=== PATIENT | female | born 1970 | race Caucasian/White ===

== ENCOUNTER 2025-01-22 17:57 | Inpatient (IN) | payer BC, SELFPAY ==
[2025-01-22 14:43] VITALS: BP 132/84
[2025-01-22 16:13] LABS: Hematocrit 37.5 % (37.0-47.0); Hemoglobin 12.8 g/dL (12.0-16.0); Mean Corp Hgb Conc. 34.1 g/dL (33.0-37.0); Mean Corpuscular Volume 89.9 fL (81.0-99.0); Nucleated Red Blood Cells % 0 %; Platelet Count 242 10^3/uL (130-400); Red Cell Dist. Width 13.8 % (11.5-14.5)
--- NOTE | 2025-01-22 16:25 | ED.GENMED ---
History of Present Illness
<Valeria Galindo PA-C - Last Filed: 01/22/25 21:53>
General
Chief Complaint: Skin Problem
Source: patient
Exam Limitations: none
Time Seen by Provider: 01/22/25 16:09
History of Present Illness
History of Present Illness:
54yo right hand dominant female with no significant past medical history presenting for evaluation of left wrist redness. Patient was bitten by her daughters cat 3 days ago. She was seen by her PCP the following day and was started on Keflex. The
redness and swelling has progressively worsened since then and the redness started to streak up the forearm today. She was again seen by her PCP today in follow-up and she was told to go to the ED for IV antibiotics. Patient received seen today.
Cat is up-to-date on rabies vaccinations. No fevers or chills.
Phy Exam
<Valeria Galindo PA-C - Last Filed: 01/22/25 21:53>
General Physical Exam
General Presentation: well appearing and no apparent distress
General Skin: warm and dry
General Habitus: normal
General Mental: alert
ENT Exam
ENT Exam: normocephalic
Pulmonary Exam
Pulmonary Exam: no respiratory distress
Neurological Exam
Neurological Exam: alert
Ericka Coma Scale
Eye Opening: Spontaneous
Verbal Response: Oriented
Motor Response: Obeys Commands
GCS Total Score: 15
Skin Exam
Skin Exam: warm/dry and other (Erythema/warmth noted to dorsum of hand/wrist with redness extending to the proximal forearm. Small puncture wound noted to wrist. ROM of wrist decreased 2/2 swelling. No pain with micro-motion. No fluctuance or
crepitus. 2+ radial pulse.)
Psychiatric Exam
Psychiatric Exam: normal mood/affect
Course
<Valeria Galindo PA-C - Last Filed: 01/22/25 21:53>
Orders/Labs/Results
Orders:
Orders
01/22/25 Dinner
Regular
At Your Request: Full Participation
01/22/25 16:01
Complete Blood Count/With Diff Urgent
Comprehensive Metabolic Panel Urgent
Lactic Acid Urgent
01/22/25 16:24
0.9% Sodium Chloride 1000 ml [Nss] 1,000 ml IV BOLUS
CefTRIAXone [Rocephin] 1,000 mg IV NOW STA
MetroNIDAZOLE 500 MG/100 ML [Flagyl 500 mg] 100 ml IV NOW
01/22/25 16:34
Blood Culture Q30M
PAOLA Source: Blood/Venous
Specimen Description:
Blood Culture Q30M
PAOLA Source: Blood/Venous
Specimen Description:
01/22/25 17:03
Admit/Transfer Patient As Directed
Co-Sign Provider:
Level of Care: Inpatient admission
Assign to:: Medical/Surgical
Physician / Group: hospitalist
Diagnosis: cellulitis
Reason for Hospitalization: cellulitis
Expected length of stay greater than two midnights?: Yes
ELOS- Estimated Length of Stay in days: 3
I certify the patient meets the requirements for IP care: Yes
PRN Pain Medication Management As Directed
May give lesser potent ordered pain med per pt: Yes
preference::
Protocol:: Medication orders for pain may be administered in a
manner that supports deferring to patient preference
when the pt is:
- Requesting an ordered lesser potent pain medication.
Least to most potent pain medications are defined
as: acetaminophen < NSAID < tramadol < opioids
(morphine, oxycodone, hydromorphone).
- Requesting a lesser dose of the same medication IF
ORDERED.
- Requesting a less intrusive route of administration
if both routes are prescribed by the provider (PO <
IV).
01/22/25 17:04
Code Status As Directed
Resuscitation Status: Full Code
01/22/25 18:05
Acetaminophen [Tylenol] 650 mg PO Q6HPRN PRN
Bisacodyl [Dulcolax] 10 mg RECTAL [id number] PRN
Docusate W/Senna [Senokot-S] 1 tablet PO BIDPRN PRN
Enoxaparin Sodium [Lovenox] 40 mg SC QPM
Polyethylene Glycol Powder [Miralax] 17 grams PO DAILYPRN PRN
01/22/25 18:05
Activity As Directed
Activity Level: Out of Bed-Early Mobility
Vital Signs As Directed
Frequency: Per unit guidelines
DX Deep Vein Thrombosis Video Routine
01/22/25 18:19
HYDROmorphone [Dilaudid] 0.25 mg IV Q4HPRN PRN
01/23/25 00:00
MetroNIDAZOLE 500 MG/100 ML [Flagyl 500 mg] 100 ml IV Q8H
01/23/25 06:00
Basic Metabolic Panel IN AM
Complete Blood Count/With Diff IN AM
Levothyroxine [Synthroid] 62.5 mcg PO DAILY@0600
01/23/25 08:00
Multivitamin [Theragran] 1 tablet PO DAILY
01/23/25 16:00
CefTRIAXone [Rocephin] 2,000 mg IV Q24H
Abnormal Lab Results
01/22/25
16:01
RBC 4.17 L 10^6/uL
(4.20-5.40)
Absolute Lymphs (auto) 1.0 L 10^3/uL
(1.2-3.4)
Absolute Monos (auto) 0.7 H 10^3/uL
(0.1-0.6)
Lymphocytes % 13.9 L %
(20.5-51.1)
Monocytes % 10.2 H %
(1.7-9.3)
01/22/25 16:01
01/22/25 16:01
Vital Signs
Initial and Last Documented VS:
Initial Vital Signs
Temp Pulse Resp BP Pulse Ox
98.7 F 75 20 132/84 99
01/22/25 14:43 01/22/25 14:43 01/22/25 14:43 01/22/25 14:43 01/22/25 14:43
Last Documented Vital Signs
Temp Pulse Resp BP Pulse Ox
98.2 F 76 18 132/82 98
01/22/25 18:14 01/22/25 18:14 01/22/25 18:14 01/22/25 18:14 01/22/25 18:14
<Timoteo Cullen, DO - Last Filed: 01/22/25 17:00>
Orders/Labs/Results
Orders:
Orders
01/22/25 Dinner
Regular
At Your Request: Full Participation
01/22/25 16:01
Complete Blood Count/With Diff Urgent
Comprehensive Metabolic Panel Urgent
Lactic Acid Urgent
01/22/25 16:24
0.9% Sodium Chloride 1000 ml [Nss] 1,000 ml IV BOLUS
CefTRIAXone [Rocephin] 1,000 mg IV NOW STA
MetroNIDAZOLE 500 MG/100 ML [Flagyl 500 mg] 100 ml IV NOW
01/22/25 16:34
Blood Culture Q30M
PAOL[facility] Source: Blood/Venous
Specimen Description:
Blood Culture Q30M
PAOL[facility] Source: Blood/Venous
Specimen Description:
01/22/25 17:03
Admit/Transfer Patient As Directed
Co-Sign Provider:
Level of Care: Inpatient admission
Assign to:: Medical/Surgical
Physician / Group: hospitalist
Diagnosis: cellulitis
Reason for Hospitalization: cellulitis
Expected length of stay greater than two midnights?: Yes
ELOS- Estimated Length of Stay in days: 3
I certify the patient meets the requirements for IP care: Yes
PRN Pain Medication Management As Directed
May give lesser potent ordered pain med per pt: Yes
preference::
Protocol:: Medication orders for pain may be administered in a
manner that supports deferring to patient preference
when the pt is:
- Requesting an ordered lesser potent pain medication.
Least to most potent pain medications are defined
as: acetaminophen < NSAID < tramadol < opioids
(morphine, oxycodone, hydromorphone).
- Requesting a lesser dose of the same medication IF
ORDERED.
- Requesting a less intrusive route of administration
if both routes are prescribed by the provider (PO <
IV).
01/22/25 17:04
Code Status As Directed
Resuscitation Status: Full Code
01/22/25 18:05
Acetaminophen [Tylenol] 650 mg PO Q6HPRN PRN
Bisacodyl [Dulcolax] 10 mg RECTAL [id number] PRN
Docusate W/Senna [Senokot-S] 1 tablet PO BIDPRN PRN
Enoxaparin Sodium [Lovenox] 40 mg SC QPM
Polyethylene Glycol Powder [Miralax] 17 grams PO DAILYPRN PRN
01/22/25 18:05
Activity As Directed
Activity Level: Out of Bed-Early Mobility
Vital Signs As Directed
Frequency: Per unit guidelines
DX Deep Vein Thrombosis Video Routine
01/22/25 18:19
HYDROmorphone [Dilaudid] 0.25 mg IV Q4HPRN PRN
01/23/25 00:00
MetroNIDAZOLE 500 MG/100 ML [Flagyl 500 mg] 100 ml IV Q8H
01/23/25 06:00
Basic Metabolic Panel IN AM
Complete Blood Count/With Diff IN AM
Levothyroxine [Synthroid] 62.5 mcg PO DAILY@0600
01/23/25 08:00
Multivitamin [Theragran] 1 tablet PO DAILY
01/23/25 16:00
CefTRIAXone [Rocephin] 2,000 mg IV Q24H
Abnormal Lab Results
01/22/25
16:01
RBC 4.17 L 10^6/uL
(4.20-5.40)
Absolute Lymphs (auto) 1.0 L 10^3/uL
(1.2-3.4)
Absolute Monos (auto) 0.7 H 10^3/uL
(0.1-0.6)
Lymphocytes % 13.9 L %
(20.5-51.1)
Monocytes % 10.2 H %
(1.7-9.3)
01/22/25 16:01
01/22/25 16:01
Vital Signs
Initial and Last Documented VS:
Initial Vital Signs
Temp Pulse Resp BP Pulse Ox
98.7 F 75 20 132/84 99
01/22/25 14:43 01/22/25 14:43 01/22/25 14:43 01/22/25 14:43 01/22/25 14:43
Last Documented Vital Signs
Temp Pulse Resp BP Pulse Ox
98.2 F 76 18 132/82 98
01/22/25 18:14 01/22/25 18:14 01/22/25 18:14 01/22/25 18:14 01/22/25 18:14
Vikramlt;Valeria Galindo PA-C - Last Filed: 01/22/25 21:53>
MDM/Problems Addressed
Differential Diagnosis Includes:
54yoF here with an infected cat bite of her L wrist. Worsening despite being on Keflex x 2 days. VSS and she is afebrile. There is evidence of cellulitis on exam with erythema extending to proximal forearm. No clinical evidence of abscess, septic
arthritis, or NSTI.
Labs obtained in triage. White count and lactate normal. Blood cultures and IV Rocephin/Flagyl ordered given history of penicillin allergy. Patient admitted for further management.
<Valeria Galindo PA-C - Last Filed: 01/22/25 21:53>
*Pulse Oximetry
SaO2: 99
Oxygen Mode of Delivery: Room air
Patient hypoxic: no
*Critical Care Note
Total Time (30-74mins, 75-104mins- exclusive of procedures): Not Applicable
ED Attending Note
<Valeria Galindo PA-C - Last Filed: 01/22/25 21:53>
-
Portions of this chart may have been created with voice recognition software.� Occasional wrong word or��sound alike� substitutions may have occurred due to the inherent limitations of voice recognition software.
<Timoteo Cullen DO - Last Filed: 01/22/25 17:00>
ED Attending Note
Patient seen and examined by attending physician: Yes
I performed the substantive portion of visit, reviewed & personally made and approve the management plan that is documented in note by myself or JENNIFER.: Yes
ED Attending Note:
I evaluated the patient bedside. The patient has rather significant findings of extensive left upper extremity cellulitis. However vital signs are not consistent with sepsis. Planning admission to the hospital with IV Rocephin and Flagyl.
Discharge Plan
Departure
Patient Disposition: Admit
Date of Disposition: 01/22/25
Time of Disposition: 16:29
Presentation/result/management discussed w/ accepting MD/DO: Hospitalist
Discharge Problem:
Cat bite of left wrist with infection
Interventions
Interventions:
*Risk Screen - Suicide Last Done: 01/22/25 14:43
*General Assessment Last Done: 01/22/25 14:43
*Neglect/Abuse Screening Last Done: 01/22/25 14:43
*Nursing Disposition Last Done: 01/22/25 18:01
ED-Skin Assessment Last Done: 01/22/25 16:04
Discharge Date and Time
Discharge Date/Time: 01/22/25 18:02
[2025-01-22 16:27] LABS: ALT (SGPT) 15 U/L (0-35); AST (SGOT) 17 U/L (14-36); Albumin 4.3 g/dl (3.5-5.0); Alkaline Phosphatase 55 U/L (38-126); Blood Urea Nitrogen 11 mg/dl (7-17); Calcium 9.0 mg/dl (8.4-10.2); Carbon Dioxide 29 mmol/L (22-30); Chloride 101 mmol/L (98-107); Glucose 90 mg/dl (70-99); Potassium 3.5 mmol/L (3.5-5.1); Sodium 136 mmol/L (135-145); Total Protein 7.1 g/dl (6.3-8.2); eGFR > 60.00
[2025-01-22] MEDS: ROCEPHIN 1000 MG IV (16:35)
[2025-01-22] MEDS: NSS 1000 IV (16:35)
[2025-01-22] MEDS: FLAGYL 500 MG 100 IV ×2 (16:40→23:04)
[2025-01-22 16:43] VITALS: BMI 23.0
--- NOTE | 2025-01-22 17:07 | HPS.HSE ---
Addendum entered and electronically signed by Kayli Heaton MD 01/22/25 17:51:
This is an addendum to the H&P written by Urbano Muri on 01/22/2025. �Patient seen and examined independently with resident.
54-year-old female past medical history of hypothyroidism presenting with left wrist and forearm swelling after cat bite 3 days ago. �Started Keflex 2 days ago. �[place] warm but no documented fever.
Check hand x-ray. �
Patient with cat bite cellulitis. �Ceftriaxone/Flagyl given history of rash from penicillin.
Original Note:
Family Physician
-
Family Physician: Michael Friend
Chief Complaint
-
Cat bite
History of Present Illness
54-year-old female with history of hypothyroidism presented to the ED for evaluation of left wrist and forearm swelling after cat bite 3 days ago. Her daughter's cat . she was seen by family doctor 2 days ago and was prescribed Keflex 500 mg twice
daily, last dose was this morning. History of allergy to penicillin. She notes that this morning swelling, redness, pain got worsened. She admits to restricted ROM of left wrist. She received tetanus vaccine today. She notes that her daughter's
cat is up-to-date with vaccination.
Medical History
Past Medical History
Past Medical History: Reports Hypothyroidism
Past Surgical History: Reports None
Social History
Tobacco: Non-smoker
Alcohol: Occasional
Drug: None
Personal:
Living: With Family
Employment: Employed
Family History
Family History: Not pertinent
Allergies / Home Medications
Allergies reflects when Allergies were last updated in [facility].
Home Medications with original date entered in [facility]
Allergy/Medication List:
Allergies
Allergy/AdvReac Type Severity Reaction Status Date / Time
amoxicillin Allergy swelling Verified 01/22/25 16:37
as child-
tolerates
cephalexin
Penicillins Allergy rash on Verified 01/22/25 16:37
neck-
tolerates
cephalexin
Home Medications
levothyroxine 125 mcg tablet 62.5 mcg PO DAILY@0600 Thyroid 01/22/25
multivitamin 1 tab PO DAILY Supplement 01/22/25
Review of Systems
-
History Source: Patient
A 12 point ROS was completed and negative except as noted: Yes
Physical Exam
Vital Signs
Vital Signs
Temp Pulse Resp BP Pulse Ox
98.7 F 75 20 132/84 99
01/22/25 14:43 01/22/25 14:43 01/22/25 14:43 01/22/25 14:43 01/22/25 16:27
Physical Exam
General: Comfortable and Conversant
HEENT: NormoCephalic, Anicteric and Moist mucous membranes
Respiratory: Clear
Cardiac: S1/S2 and Regular Rhythm
GI: Soft, Non Tender and Non Distended
Musculoskeletal: Edema, Left Upper Extremity (mildly tender, moderate erythema, swelling left wrist streaking up to forearm, no drainage/fluctuance of wound. Normal radial pulses restricted range of motion of wrist due to pain. Soft digits. )
Skin: Warm
Neuro: AO x 3
Hematologic/Lymphatic: No Lymphadenopathy
Psych: Calm
Laboratory Results
-
01/22/25 16:01
01/22/25 16:01
Laboratory Results
Lactic Acid 0.9 mmol/L (0.7-2.0) 01/22/25 16:01
Total Bilirubin 0.7 mg/dl (0.2-1.3) 01/22/25 16:01
AST 17 U/L (14-36) 01/22/25 16:01
ALT 15 U/L (0-35) 01/22/25 16:01
Alkaline Phosphatase 55 U/L (38-126) 01/22/25 16:01
Data Reviewed
-
Lab Data: Labs Reviewed by me and Discussed with Physician
Impression/Plan
-
IMPRESSION:
Cellulitis of left wrist and forearm secondary to cat bite
History of hypothyroidism
PLAN:
Cellulitis of left wrist and forearm secondary to cat bite
Failed outpatient treatment
Afebrile, normal white count
Normal radial pulses, restricted ROM
Known penicillin allergy
Agree with Rocephin IV from gram positive coverage
Agree with IV Flagyl for anaerobic coverage
Tylenol, IV Dilaudid for pain control
Marked the affected area
Await blood cultures
Monitor white count and temperature curve
History of hypothyroidism
Continue levothyroxine
Full code
Lovenox
Regular diet
[2025-01-22 18:14] VITALS: BP 132/82
[2025-01-22 18:15] VITALS: BMI 20.9
[2025-01-22] MEDS: LOVENOX 40 MG SC (18:29)
[2025-01-22] MEDS: TYLENOL 650 MG PO (20:01)
[2025-01-22 23:13] VITALS: BP 105/67
[2025-01-23] MEDS: SYNTHROID 62.5 MCG PO (05:33)
[2025-01-23 06:11] LABS: Hematocrit 33.8 % (37.0-47.0); Hemoglobin 11.6 g/dL (12.0-16.0); Mean Corp Hgb Conc. 34.3 g/dL (33.0-37.0); Mean Corpuscular Volume 89.2 fL (81.0-99.0); Nucleated Red Blood Cells % 0 %; Platelet Count 213 10^3/uL (130-400); Red Cell Dist. Width 13.7 % (11.5-14.5)
[2025-01-23 06:34] LABS: Blood Urea Nitrogen 12 mg/dl (7-17); Calcium 8.9 mg/dl (8.4-10.2); Carbon Dioxide 26 mmol/L (22-30); Chloride 107 mmol/L (98-107); Estimated Creatinine Clearance 88 ml/min; Glucose 85 mg/dl (70-99); Potassium 4.1 mmol/L (3.5-5.1); Sodium 136 mmol/L (135-145); eGFR > 60.00
[2025-01-23 07:35] VITALS: BP 98/65
[2025-01-23] MEDS: THERAGRAN 1 TABLET PO (08:41)
[2025-01-23] MEDS: FLAGYL 500 MG 100 IV ×3 (08:42→23:00)
[2025-01-23] MEDS: TYLENOL 650 MG PO ×2 (09:24→17:20)
[2025-01-23 15:11] VITALS: BP 115/70
--- NOTE | 2025-01-23 15:49 | W.PN.HOSP.TC ---
Today's Communication/Plan
-
IV AB
Ortho eval tomorrow
Assessment / Plan
Assessment / Plan
54-year-old with left wrist and forearm swelling after cat bite 3 days ago. Patient is her daughter's cat family physician prescribed Keflex. Patient has allergy listed to penicillin.
Edema forearm and wrist on the left side
Bite mayra. No redness mild tenderness
Cardiovascular system S1-S2 appreciated
Chest clear to auscultation
# Cellulitis of the left wrist and forearm secondary to cat bite
Patient was on Keflex 500 mg twice daily which was probably not an adequate dose
Continue ceftriaxone and Flagyl
Got tetanus shot on 01/23/2020
Pain control
# Hypothyroidism-continue levothyroxine
# DVT prophylaxis-Lovenox
# Full code
Part of this note was created using voice recognition system. Occasional wrong word or��sound alike� substitutions may have inadvertently occurred due to the inherent limitations of voice recognition software. If noted kindly bring it to my
attention for correction.
Anticipated Discharge: 24 - 48 hours
Subjective/Interval History
-
Date of Service: January 23, 2025
Objective Data
-
Labs:
Laboratory Results
01/23/25
05:14
WBC 5.6
Hgb 11.6 L
Hct 33.8 L
Plt Count 213
Sodium 136
Potassium 4.1
Chloride 107
Carbon Dioxide 26
BUN 12
Creatinine 0.7
Glucose 85
Calcium 8.9
Vital Signs:
Vital Signs
Temp Pulse Resp BP Pulse Ox
97.9 F 85 18 115/70 96
01/23/25 15:11 01/23/25 15:11 01/23/25 15:11 01/23/25 15:11 01/23/25 15:11
I&O
01/22/25 01/23/25 01/24/25
06:59 06:59 06:59
Intake Total 100 / 100
Balance 100 / 100
[2025-01-23] MEDS: ROCEPHIN 2000 MG IV (17:03)
[2025-01-23] MEDS: STERILE WATER FOR INJECTION 20 ML IV (17:03)
[2025-01-23] MEDS: LOVENOX 40 MG SC (17:04)
[2025-01-23] MEDS: ZOFRAN 4 MG IV (20:52)
[2025-01-23 23:10] VITALS: BP 101/65
[2025-01-24] VITALS (11 sets, daily range): BP systolic 106–144; BP diastolic 72–92
[2025-01-24] MEDS: SYNTHROID 62.5 MCG PO (05:33)
--- NOTE | 2025-01-24 07:40 | CON.ORTHO ---
Consultation
-
Date/Time Consultation Requested: 01/24/2025; time unknown
Date/Time Consultation Performed: 01/24/2025; 0700
Requesting Provider: unknown
Performing Provider: Pam Giron PA-C / Dr. Dale Turcios
Reason for Consultation: Left wrist cat bite
Consultation - Orthopedics
History
Ms. Aronld is a 54 year old female with PMH of hypothyroidism seen today for her left wrist and hand. She reports she was bit by her daughters cat on Monday (01/19/25). She was initially evaluated by her PCP who placed her on Keflex twice daily.
Unfortunately, she experienced progressively worsening swelling, redness and pain over the following days. After repeat evaluation with her PCP, it was recommended that she present to the ED for IV abx. She reports she has noticed some improvement
in her symptoms with being on IV abx over the last few days. She does endorse some continued pain dorsally, as well as difficulty with ROM of the hand. She reprots she is otherwise feeling well at present.
Allergies / Home Medications
Allergy/AdvReac Type Severity Reaction Status Date / Time
amoxicillin Allergy swelling Verified 01/22/25 16:37
as child-
tolerates
cephalexin
Penicillins Allergy rash on Verified 01/22/25 16:37
neck-
tolerates
cephalexin
�Medication �Instructions �Recorded
levothyroxine 125 mcg tablet 62.5 mcg PO DAILY@0600 Thyroid 01/22/25
multivitamin 1 tab PO DAILY Supplement 01/22/25
Vital Signs / Lab Results
Temp Pulse Resp BP Pulse Ox
98.3 F 82 16 101/65 98
01/23/25 23:10 01/23/25 23:10 01/23/25 23:10 01/23/25 23:10 01/23/25 23:10
01/23/25 05:14
01/23/25 05:14
WBC WNL.
XR Left Wrist IMPRESSION:
1. Moderate diffuse soft tissue swelling and subcutaneous edema throughout the left wrist and hand consistent with ACUTE CELLULITIS.
2. No radiographic evidence for acute osteomyelitis or soft tissue emphysema.
Directed exam of the left upper extremity reveals edema and erythema overlying the dorsal aspect of the wrist, hand and proximal forearm. There is a small puncture wound overlying the dorsal wrist. No drainage or purulence able to be expressed.
There is tenderness to palpation overlying the extensor tendons. No tenderness elsewhere in the hand or wrist. No appreciable collections underlying the area of erythema/edema. Stiffness with ROM of the hand. No pain with passive extension, but
there is some pain elicited with passive flexion. Senastion intact to light touch. Capillary refill <2 seconds.
Assessment / Plan
Left wrist cat bite; cellulitis
--Overall, Elba appears to be moving in the right direction in regards to her left wrist cat bite and cellulitis. She does report her symptoms are improving on IV antibiotics. I do not appreciate any underlying collections on exam today.
Karolina will be around today to evaluate her wrist as well, but at this point I do not believe any surgical intervention is indicated. We will keep her NPO until she is able to discuss with Dr. Turcios. Continue IV antibiotics, currently rocephin and
flagyl. Pain control prn. May perform gentle motion of her wrist and hand.
[2025-01-24] MEDS: THERAGRAN 1 TABLET PO (08:50)
[2025-01-24] MEDS: FLAGYL 500 MG 100 IV ×3 (08:50→23:37)
--- NOTE | 2025-01-24 13:53 | W.PN.HOSP.TC ---
Today's Communication/Plan
-
Hand looks slightly better than yesterday. Continue IV antibiotics and follow clinically
Dr. Turcios consulted-await rounds
Assessment / Plan
Assessment / Plan
54-year-old with left wrist and forearm swelling after cat bite 3 days ago. Patient is her daughter's cat family physician prescribed Keflex. Patient has allergy listed to penicillin.
Edema forearm and L wrist - Improving. No clear fluctuance
Bite mayra. No redness mild tenderness
Cardiovascular system S1-S2 appreciated
Chest clear to auscultation
# Cellulitis of the left wrist and forearm secondary to cat bite
Patient was on Keflex 500 mg twice daily which was probably not an adequate dose
Continue ceftriaxone and Flagyl -changed to adequate dose of oral cephalosporins and Flagyl for discharge
Got tetanus shot on 01/23/2020
Pain control
# Hypothyroidism-continue levothyroxine
# DVT prophylaxis-Lovenox
# Full code
Part of this note was created using voice recognition system. Occasional wrong word or��sound alike� substitutions may have inadvertently occurred due to the inherent limitations of voice recognition software. If noted kindly bring it to my
attention for correction.
Anticipated Discharge: Within 24 hours
Subjective/Interval History
-
Date of Service: January 24, 2025
Objective Data
-
Vital Signs:
Vital Signs
Temp Pulse Resp BP Pulse Ox
98.2 F 95 18 144/92 97
01/24/25 07:25 01/24/25 07:25 01/24/25 07:25 01/24/25 07:25 01/24/25 07:25
I&O
01/23/25 01/24/25 01/25/25
06:59 06:59 06:59
Intake Total 100 / 100 1240 / 1240
Balance 100 / 100 1240 / 1240
--- NOTE | 2025-01-24 14:10 | CM ---
CM following re: discharge planning.
Reviewed pt's chart, met with pt.
Pt is a 54 year old female, admitted with primary dx of Cellulitis of left wrist and forearm secondary to cat bite. Per MD, no surgical intervention, continue antibiotics.
Pt reports she lives with at 2 daughters 2SH, 2steps o enter. 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
PT/OT to evaluate to determine a level of care at discharge.
D/C plan: home with no needs anticipated.
CM will follow with discharge plan updates as hospitalization progresses
[2025-01-24] MEDS: DILAUDID 0.5 MG IV ×3 (16:39→17:11)
[2025-01-24] MEDS: STERILE WATER FOR INJECTION 20 ML IV (16:42)
[2025-01-24] MEDS: ROCEPHIN 2000 MG IV (16:42)
--- NOTE | 2025-01-24 17:13 | W.IMMPOSTOP ---
Surgical Immed Post Op Note
-
Primary Surgeon: Karolina
Pre-op Diagnosis: Left wrist cat bite infection
Post-op Diagnosis: Same
Procedure Performed: Left wrist I&D, extensor synovectomy
Anesthesia Type: General
Specimen / Cultures: Left wrist extensor tenosynovial fluid
Estimated Blood Loss: 2cc
Complications: None
Operative Findings: Dictated
Plan:
- Continue with abx
- Follow OR culture results
- Change dressing in 2-3 days
[2025-01-24] MEDS: LOVENOX 40 MG SC (18:34)
[2025-01-24] MEDS: TYLENOL 650 MG PO (18:37)
[2025-01-24] MEDS: DILAUDID 0.25 MG IV (22:17)
[2025-01-25 03:20] VITALS: BP 101/63
[2025-01-25] MEDS: DILAUDID 0.25 MG IV (04:18)
[2025-01-25] MEDS: SYNTHROID 62.5 MCG PO (06:23)
[2025-01-25 07:33] LABS: Blood Urea Nitrogen 10 mg/dl (7-17); Estimated Creatinine Clearance 102 ml/min; Glucose 86 mg/dl (70-99)
[2025-01-25 07:34] LABS: Calcium 8.8 mg/dl (8.4-10.2); Carbon Dioxide 27 mmol/L (22-30); Chloride 103 mmol/L (98-107); Potassium 4.3 mmol/L (3.5-5.1); Sodium 133 mmol/L (135-145); eGFR > 60.00
[2025-01-25 07:37] LABS: C-Reactive Protein 22.50 mg/L (0.0-10.00)
[2025-01-25 07:47] VITALS: BP 101/61
[2025-01-25 07:54] LABS: Hematocrit 34.3 % (37.0-47.0); Hemoglobin 11.9 g/dL (12.0-16.0); Mean Corp Hgb Conc. 34.7 g/dL (33.0-37.0); Mean Corpuscular Volume 87.1 fL (81.0-99.0); Platelet Count 271 10^3/uL (130-400); Red Cell Dist. Width 13.5 % (11.5-14.5)
[2025-01-25] MEDS: TYLENOL 650 MG PO ×2 (08:28→16:59)
[2025-01-25] MEDS: THERAGRAN 1 TABLET PO (08:29)
[2025-01-25] MEDS: FLAGYL 500 MG 100 IV (08:29)
--- NOTE | 2025-01-25 10:42 | W.PN.HOSP.TC ---
Today's Communication/Plan
-
IV Cef/Flagyl
follow up intra-op cultures
appreciate Ortho
Assessment / Plan
Assessment / Plan
54 yo woman with hx hypothyroidism, penicillin allergy presents with left wrist and forearm swelling after cat bite 3 days ago. She was prescribed Keflex as outpatient.
Cellulitis of the left wrist and forearm secondary to cat bite
Extensor tendon tenosynovitis
s/p left wrist I&D, extensor tenosynovectomy on 01/24/25
-Continue ceftriaxone and Flagyl (penicillin allergy)
-Got tetanus shot on 01/23/2020
-appreciate ortho, will also discuss case with ID
-follow up intra-op cultures
# Hypothyroidism-continue levothyroxine
# DVT prophylaxis-Lovenox
# Full code
Anticipated Discharge: 24 - 48 hours
Subjective/Interval History
-
Date of Service: January 25, 2025
pain controlled
arm wrapped
no chest pain or shortness of breath
Objective Data
-
Labs:
Laboratory Results
01/25/25
06:27
WBC 6.8
Hgb 11.9 L
Hct 34.3 L
Plt Count 271 D
Sodium 133 L
Potassium 4.3
Chloride 103
Carbon Dioxide 27
BUN 10
Creatinine 0.6
Glucose 86
Calcium 8.8
Vital Signs:
Vital Signs
Temp Pulse Resp BP Pulse Ox
98.0 F 71 12 101/61 98
01/25/25 07:47 01/25/25 07:47 01/25/25 07:47 01/25/25 07:47 01/25/25 07:47
I&O
01/24/25 01/25/25 01/26/25
06:59 06:59 06:59
Intake Total 1240 / 1240 1080 / 1080
Balance 1240 / 1240 1080 / 1080
Review of Systems
-
History Source: Patient
All other systems: Reviewed and negative
Physical Exam
-
General: No Apparent Distress
HEENT: PERRLA
Respiratory: Clear to Auscultation; Negative Wheezes
GI: Soft and Nontender
Skin: Warm and Dry; Negative Rash
Neuro: AO x 3
Psych: Calm
Data Reviewed
-
Diagnostic Radiology: Report Reviewed by me
Labs: Labs Reviewed by me
[2025-01-25 11:19] VITALS: BP 101/70
--- NOTE | 2025-01-25 15:13 | CON.ID ---
Consultation
-
Date/Time Consultation Requested: 01/25/2025 1117
Date/Time Consultation Performed: 01/25/2025 1500
Requesting Provider: Dr. Benítez
Performing Provider: Dr. Vieyra
Reason for Consultation: Left hand cat bite
Chief Complaint / Past History
History of Present Illness
Elba Arnold is a 54-year-old female being evaluated at the quest of Dr. Benítez in regards to a left hand cat bite. History is obtained from chart review, along with patient interview.
Patient reports that she was in her usual state of health until 01/20 when she was bit by her daughters cat. She states that she was attempting to grain picker the cat and it bit her on the left lateral wrist. Immediately afterward, she washed the area
and contacted her PCP who prescribed her Keflex. Over the next 2 days there was increasing discomfort, swelling and redness of the wrist area, with later development of streaking up the forearm. She again saw her PCP who sent her to the ER for
further evaluation. The cat that bit her is up-to-date on all of its shots.
The patient was placed on empiric antibiotics, and yesterday was taken to the OR by Orthopedics for washout.
At this time, she reports discomfort in the wrist area, but some increased overall movement of her fingers. She denies any progressive redness up her forearm. She denies any axillary adenopathy. She denies any fevers or chills.
Past History
Past Medical History: None
Additional Past Surgical History:
Partial thyroidectomy
Allergy History:
amoxicillin Allergy (Verified 01/22/25 16:37)
facial swelling as child - tolerates cephalexin
Penicillins Allergy (Verified 01/22/25 16:37)
rash on neck post- - tolerates cephalexin
Medications Reviewed: Yes
Current Antibiotics:
Ceftriaxone
Metronidazole
Social History
Tobacco: Non-Smoker
Alcohol: Occasional
Drug: None
Living: With Family
Employment: Employed
Family History
Family History: Not Pertinent
Review of Systems
Vital Signs
Temp Pulse Resp BP Pulse Ox
98.1 F 78 12 101/70 98
01/25/25 11:19 01/25/25 11:19 01/25/25 11:19 01/25/25 11:19 01/25/25 11:19
Physical Exam
Physical Exam
Constitutional: No Acute Distress, Comfortable and Non-toxic
Eyes: No Conjunctival Hemorrhage and Sclera Anicteric
Oral: No Thrush and No Ulcers
Cardiovascular: Regular Rate and S1/S2; Negative S3/S4
Pulmonary: Clear; Negative Wheezes, Rales or Rhonchi
Gastrointestinal: Soft, Non Tender and Non Distended
Extremities: Edema (Left hand); Negative Cyanosis or Erythema
Wound: Other (Left wrist area dressed. Wrist and forearm in Apolinar wrap.)
Neurological: Awake and Alert
Psychological: Calm
Lab / Diagnostic Study Results
01/25/25 06:27
01/25/25 06:27
Abs Immat Gran (auto) 0.0 10^3/uL (0-0.05) 01/23/25 05:14
Absolute Neuts (auto) 3.4 10^3/uL (1.4-6.5) 01/23/25 05:14
Absolute Lymphs (auto) 1.4 10^3/uL (1.2-3.4) 01/23/25 05:14
Absolute Monos (auto) 0.7 10^3/uL (0.1-0.6) H 01/23/25 05:14
Absolute Basos (auto) 0.0 10^3/uL (0-0.2) 01/23/25 05:14
Immature Gran % 0.2 % (0-0.5) 01/23/25 05:14
Neutrophils % 60.7 % (42.2-75.2) 01/23/25 05:14
Lymphocytes % 24.2 % (20.5-51.1) 01/23/25 05:14
Monocytes % 11.7 % (1.7-9.3) H 01/23/25 05:14
Eosinophils % 2.5 % (0-6) 01/23/25 05:14
Basophils % 0.7 % (0-2) 01/23/25 05:14
Lactic Acid 0.9 mmol/L (0.7-2.0) 01/22/25 16:01
C-Reactive Protein 22.50 mg/L (0.0-10.00) H 01/25/25 06:27
Microbiology Results
Micro:
01/24/25 15:56 Anaerobic Culture - Preliminary
Hand - Left Culture pending. Anaerobic cultures are examined after 3
days incubation. Additional information to follow.
01/24/25 15:56 Wound Culture - Preliminary
Hand - Left No growth
Gram Stain - Preliminary
01/22/25 16:34 Blood Culture - Preliminary
Blood/Venous No Growth in 48 hours- Final report to follow
01/22/25 16:34 Blood Culture - Preliminary
Blood/Venous No Growth in 48 hours- Final report to follow
Imaging:
01/23/2025 X-ray left wrist: moderate diffuse soft tissue swelling and subcutaneous edema throughout the left wrist and hand consistent with acute cellulitis. No radiographic evidence for acute osteomyelitis or soft tissue emphysema. Please see
full dictation for additional detail.
Assessment / Plan
Left wrist cat bite
Left wrist tenosynovitis
Left hand cellulitis
Elevated CRP
Penicillin allergy
Recommendations:
Consolidate antibiotics to ertapenem, which will cover streptococcal isolates, along with Pasteurella.
Monitor for clinical improvement.
Given involvement of tendons, patient may benefit from a 2 to 3-week course of IV antibiotics.
[2025-01-25 15:43] VITALS: BP 114/69
[2025-01-25] MEDS: INVANZ 60 MG IV (16:08)
[2025-01-25] MEDS: STERILE WATER FOR INJECTION IV (16:08)
[2025-01-25] MEDS: LOVENOX 40 MG SC (17:00)
[2025-01-25 19:07] VITALS: BP 107/76
[2025-01-25 23:41] VITALS: BP 109/78
[2025-01-26] MEDS: SYNTHROID 62.5 MCG PO (05:54)
[2025-01-26] MEDS: DILAUDID 0.25 MG IV ×2 (05:54→14:14)
[2025-01-26 07:46] VITALS: BP 99/63
[2025-01-26] MEDS: THERAGRAN 1 TABLET PO (08:06)
--- NOTE | 2025-01-26 10:07 | W.PN.ORTHO ---
Today's Communication / Plan
-
Continue IV abx per ID
Will likely need several weeks of IV ertapenem
Remain inpatient, will likely remove packing Monday
F/U Dr Turcios as an outpatient
Assessment
.
Dressing:
Clean, dry and intact.
Assessment:
POD#2 s/p left wrist I&D
Plan
.
Activity:
Out of bed.
PT/OT
Subjective
.
.:
Patient resting comfortably. Still with some difficulty in extending fingers but this is improving
Vital Signs and Labs
.
Vital Signs and Labs:
Lab Results
01/25/25 06:27
01/25/25 06:27
Temp Pulse Resp BP Pulse Ox
98.5 F 68 12 99/63 97
01/26/25 07:46 01/26/25 07:46 01/26/25 07:46 01/26/25 07:46 01/26/25 07:46
Physical Exam
-
Full passive ROM fingers, difficulty in extending fingers
Difficulty in forming full composite fist
Sensation intact, brisk capillary refill
No obvious erythema or ecchymosis
--- NOTE | 2025-01-26 11:22 | CM ---
Chart reviewed. Cont IV abx
Discussed w/ hospitalist, patient will likely need continuous IV abx at discharge
Awaiting final ID recs
--- NOTE | 2025-01-26 11:48 | W.PN.HOSP.TC ---
Today's Communication/Plan
-
see plan
Assessment / Plan
Assessment / Plan
54 yo woman with hx hypothyroidism, penicillin allergy presents with left wrist and forearm swelling after cat bite 3 days prior. She was prescribed Keflex as outpatient.
Cellulitis of the left wrist and forearm secondary to cat bite
Extensor tendon tenosynovitis
-Got tetanus shot on 01/23/2020
-s/p left wrist I&D, extensor tenosynovectomy on 01/24/25
-appreciate ortho, packing to be removed Monday
-appreciate ID
-abx changed to IV Ertapenem, patient will likely require outpatient IV therapy
-follow up intra-op cultures
-*discussed with CM that patient will likely need outpatient infusion therapy - follow up further ID recs
# Hypothyroidism-continue levothyroxine
# DVT prophylaxis-Lovenox
# Full code
Anticipated Discharge: 24 - 48 hours
Subjective/Interval History
-
Date of Service: January 26, 2025
feeling well
pain controlled
Objective Data
-
Vital Signs:
Vital Signs
Temp Pulse Resp BP Pulse Ox
98.5 F 68 12 99/63 97
01/26/25 07:46 01/26/25 07:46 01/26/25 07:46 01/26/25 07:46 01/26/25 07:46
I&O
01/25/25 01/26/25 01/27/25
06:59 06:59 06:59
Intake Total 1080 / 1080 480 / 480
Balance 1080 / 1080 480 / 480
Review of Systems
-
History Source: Patient
All other systems: Reviewed and negative
Physical Exam
-
General: No Apparent Distress
HEENT: PERRLA
Respiratory: Clear to Auscultation; Negative Wheezes
GI: Soft and Nontender
Musculoskeletal: Other (left arm wrapped )
Skin: Warm and Dry; Negative Rash
Neuro: AO x 3
Psych: Calm
Data Reviewed
-
Diagnostic Radiology: Report Reviewed by me
Labs: Labs Reviewed by me
--- NOTE | 2025-01-26 14:09 | W.PN.ID1 ---
Date of Service
Date of Service: January 26, 2025
Today's Communication
Continue antibiotics.
Assessment / Plan
Left wrist cat bite
Left wrist tenosynovitis
Left hand cellulitis
Elevated CRP
Penicillin allergy
Recommendations:
Continue ertapenem, which will cover streptococcal isolates, along with Pasteurella.
Monitor for clinical improvement.
Given involvement of tendons, patient may benefit from a 2 to 3-week course of IV antibiotics.
Home infusion sheet placed on paper chart. Will place midline.
Chief Complaint
-: Cellulitis
Subjective / Review of Systems
Review of Systems: No Fever and No Chills
Vital Signs / Physical Exam
Vital Signs
Vital Signs
Temp Pulse Resp BP Pulse Ox
98.5 F 68 12 99/63 97
01/26/25 07:46 01/26/25 07:46 01/26/25 07:46 01/26/25 07:46 01/26/25 07:46
Physical Exam
Constitutional: No Acute Distress, Comfortable and Non-toxic
Pulmonary: Non Labored
Gastrointestinal: Non Distended
Extremities: Other (Left upper extremity remains dressed in Apolinar wrap. Decreased overall active ROM of 3rd and 4th fingers.)
Neurological: Awake and Alert
Psychological: Calm
Objective Data
Lab Data
Lab Results
01/25/25 06:27
01/25/25 06:27
Estimated Creat Clear 102 ml/min 01/25/25 06:27
Lactic Acid 0.9 mmol/L (0.7-2.0) 01/22/25 16:01
Total Bilirubin 0.7 mg/dl (0.2-1.3) 01/22/25 16:01
AST 17 U/L (14-36) 01/22/25 16:01
ALT 15 U/L (0-35) 01/22/25 16:01
Alkaline Phosphatase 55 U/L (38-126) 01/22/25 16:01
C-Reactive Protein 22.50 mg/L (0.0-10.00) H 01/25/25 06:27
Most recent labs reviewed.
Micro Results:
01/24/25 15:56 Anaerobic Culture - Preliminary
Hand - Left Culture pending. Anaerobic cultures are examined after 3
days incubation. Additional information to follow.
01/24/25 15:56 Wound Culture - Preliminary
Hand - Left No growth
Gram Stain - Preliminary
01/22/25 16:34 Blood Culture - Preliminary
Blood/Venous No Growth in 72 hours- Final report to follow
01/22/25 16:34 Blood Culture - Preliminary
Blood/Venous No Growth in 72 hours- Final report to follow
Imaging:
01/23/2025 X-ray left wrist: moderate diffuse soft tissue swelling and subcutaneous edema throughout the left wrist and hand consistent with acute cellulitis. No radiographic evidence for acute osteomyelitis or soft tissue emphysema. Please see
full dictation for additional detail.
[2025-01-26 15:26] VITALS: BP 133/80
[2025-01-26] MEDS: INVANZ 60 MG IV (15:54)
[2025-01-26] MEDS: STERILE WATER FOR INJECTION IV (16:52)
[2025-01-26] MEDS: LOVENOX 40 MG SC (16:52)
[2025-01-26 23:00] VITALS: BP 116/77
[2025-01-26] MEDS: TYLENOL 650 MG PO (23:04)
[2025-01-27] MEDS: SYNTHROID 62.5 MCG PO (05:26)
[2025-01-27] MEDS: THERAGRAN 1 TABLET PO (07:57)
[2025-01-27 08:03] VITALS: BP 113/78
--- NOTE | 2025-01-27 08:21 | W.PN.ORTHO ---
Today's Communication / Plan
-
54-year-old female postop day 3 left dorsal wrist extensor tenosynovectomy and debridement irrigation with Dr. Turcios
- Dressing was taken down today showing appropriate healing. Return to splint for soft tissue rest. Continue nonweightbearing
- Antibiotic recommendations per infectious disease.
- Outpatient follow-up in approximately [address] Turcios. Orthopedic surgery will follow peripherally. Discharge information up-to-date
Assessment
.
Distal Motor Intact: Yes
Dressing:
Clean, dry and intact.
Plan
.
Surgery / Date: Left wrist D&I 01/24
Activity:
Out of bed.
PT/OT
Subjective
.
.:
Patient resting comfortably.
Vital Signs and Labs
.
Vital Signs and Labs:
Lab Results
01/25/25 06:27
01/25/25 06:27
Temp Pulse Resp BP Pulse Ox
97.6 F 79 12 113/78 98
01/27/25 08:03 01/27/25 08:03 01/27/25 08:03 01/27/25 08:03 01/27/25 08:03
--- NOTE | 2025-01-27 12:35 | W.PN.ID1 ---
Date of Service
Date of Service: January 27, 2025
Today's Communication
Continue antibiotics.
Assessment / Plan
Left wrist cat bite
Left wrist tenosynovitis
Left hand cellulitis
Elevated CRP
Penicillin allergy
Recommendations:
Continue ertapenem, which will cover streptococcal isolates, along with Pasteurella.
Monitor for clinical improvement.
Given involvement of tendons, patient may benefit from a 2 to 3-week course of IV antibiotics.
Home infusion sheet placed on paper chart; home infusion being set up.
Midline placed.
����������������������������������������������������������
Chief Complaint
-: Cellulitis
Subjective / Review of Systems
Review of Systems: No Fever and No Chills
Vital Signs / Physical Exam
Vital Signs
Vital Signs
Temp Pulse Resp BP Pulse Ox
97.6 F 79 12 113/78 98
01/27/25 08:03 01/27/25 08:03 01/27/25 08:03 01/27/25 08:03 01/27/25 08:03
Physical Exam
Constitutional: No Acute Distress, Comfortable and Non-toxic
Pulmonary: Non Labored
Gastrointestinal: Non Distended
Extremities: Other (Left upper extremity remains dressed in Apolinar wrap. Decreased overall active ROM of 3rd and 4th fingers; stable from yesterday.)
Neurological: Awake and Alert
Psychological: Calm
Objective Data
Lab Data
Lab Results
01/25/25 06:27
01/25/25 06:27
Estimated Creat Clear 102 ml/min 01/25/25 06:27
Lactic Acid 0.9 mmol/L (0.7-2.0) 01/22/25 16:01
Total Bilirubin 0.7 mg/dl (0.2-1.3) 01/22/25 16:01
AST 17 U/L (14-36) 01/22/25 16:01
ALT 15 U/L (0-35) 01/22/25 16:01
Alkaline Phosphatase 55 U/L (38-126) 01/22/25 16:01
C-Reactive Protein 22.50 mg/L (0.0-10.00) H 01/25/25 06:27
Most recent labs reviewed.
Micro Results:
01/24/25 15:56 Anaerobic Culture - Preliminary
Hand - Left NO ANAEROBES ISOLATED
01/24/25 15:56 Wound Culture - Preliminary
Hand - Left No growth
Gram Stain - Preliminary
01/22/25 16:34 Blood Culture - Preliminary
Blood/Venous No Growth in 4 days- Final report to follow
01/22/25 16:34 Blood Culture - Preliminary
Blood/Venous No Growth in 4 days- Final report to follow
Imaging:
01/23/2025 X-ray left wrist: moderate diffuse soft tissue swelling and subcutaneous edema throughout the left wrist and hand consistent with acute cellulitis. No radiographic evidence for acute osteomyelitis or soft tissue emphysema. Please see
full dictation for additional detail.
[2025-01-27] MEDS: DILAUDID 0.25 MG IV (12:37)
--- NOTE | 2025-01-27 13:33 | W.PN.HOSP.TC ---
Today's Communication/Plan
-
dc home when home IV abx arranged
Assessment / Plan
Assessment / Plan
54F with hypothyroidism, p/w left wrist and forearm swelling after cat bite 3 days prior. She was prescribed Keflex as outpatient.
Cellulitis of the left wrist and forearm secondary to cat bite
Extensor tendon tenosynovitis
-Got tetanus shot on 01/23/2020
-s/p left wrist I&D, extensor tenosynovectomy on 01/24/25
-ortho Dressing today, continue splint, continue nonweightbearing
-ID managing antibiotics, continue IV Ertapenem, patient will likely require outpatient IV therapy
rec'd IV dilaudid today
Have discussed with CM, OPAT arrangements will not be completed today
Hypothyroidism
levothyroxine
DVT prophylaxis
Lovenox
Anticipated Discharge: Within 24 hours
Subjective/Interval History
-
Date of Service: January 27, 2025
Pain is controlled, denies issues overnight
Objective Data
-
Vital Signs:
Vital Signs
Temp Pulse Resp BP Pulse Ox
97.6 F 79 12 113/78 98
01/27/25 08:03 01/27/25 08:03 01/27/25 08:03 01/27/25 08:03 01/27/25 08:03
I&O
01/26/25 01/27/25 01/28/25
06:59 06:59 06:59
Intake Total 480 / 480 1620 / 1620
Balance 480 / 480 1620 / 1620
Review of Systems
-
History Source: Patient
All other systems: Reviewed and negative
Physical Exam
-
General: No Apparent Distress
HEENT: Moist Mucous Membranes, Anicteric and PERRLA
Respiratory: Clear to Auscultation; Negative Wheezes, Rales or Rhonchi
Cardiac: Regular Rhythm and S1/S2; Negative Murmur, Rub or Gallop
GI: Soft, Nontender, Nondistended and Normal Bowel Sounds
Musculoskeletal: No Edema and Other (Left Dressing clean dry intact)
Skin: Warm and Dry; Negative Rash, Ulcers or Lesions
Neuro: Awake and AO x 3
Hematologic / Lymphatic: No Lymphadenopathy
Psych: Calm
Data Reviewed
-
Diagnostic Radiology: Report Reviewed by me
Labs: Labs Reviewed by me
--- NOTE | 2025-01-27 15:24 | CM ---
Discharge POC: Home with IV/Ertapenem. Script, midline documentation and pertinent records faxed to [facility]. Patient 's insurance will cover 80% of costs after $4,000.00 deductible is satisfied. Patient has already met $3, 800.00. Insurance
will bill patient directly. [facility] liaison will educate and train patient and her at 12:00 Noon on Monday01/28/25. Patient has been apprised of the above and is in agreement with plan.
[2025-01-27 15:33] VITALS: BP 108/72
[2025-01-27] MEDS: TYLENOL 650 MG PO (15:33)
[2025-01-27] MEDS: INVANZ 60 MG IV (15:33)
--- NOTE | 2025-01-27 15:36 | PN.CDI ---
CDI
- -
CDI:
Physician Documentation Request
Admit Date: 01/22/25 17:57
Dear Doctor Karolina,
Please review the following and provide your response in the progress notes.
Clinical Indicators:
- 01/24 Operative report 'Left wrist incision and debridement'
- 01/27 Ortho note 'postop day 3 left dorsal wrist extensor tenosynovectomy and debridement irrigation'
Could you provide, in the progress notes further clarification regarding the debridement.
Please specify the type of debridement performed:
1. Excisional Debridement - defined as removal by excision of devitalized tissue, necrosis or slough
2. Non-excisional debridement - defined as removal of devitalized tissue, necrosis or slough by such methods as irrigation, brushing, scrubbing or washing.
If the debridement was excisional, please also include:
1. Type of instrument used (#11 blade, #15 blade etc.)
2. What was excised (necrotic tissue, gangrenous tissue, slough etc.)
For excisional or non-excisional, please also include:
1. Depth of debridement (skin, subcutaneous tissue, fascia, muscle, bone etc)
2. Size and appearance of the wound (L, W, D, color of wound, drainage)
Use of terms such as suspected, likely, concern for, or probable (associated with a specific diagnosis that is being evaluated, monitored, or treated as if it exists) are acceptable and can be coded in the inpatient setting, when documented at the
time of discharge.
Thank you,
Pk Cole RN
CDI Specialist
Please use your independent medical judgment in providing your response.
[2025-01-27] MEDS: LOVENOX SC (16:16)
[2025-01-27 23:13] VITALS: BP 125/86
[2025-01-28] MEDS: ROXICODONE 5 MG PO (03:46)
[2025-01-28] MEDS: SYNTHROID 62.5 MCG PO (06:19)
[2025-01-28 07:41] VITALS: BP 138/77
[2025-01-28] MEDS: THERAGRAN 1 TABLET PO (09:05)
[2025-01-28] MEDS: TYLENOL 650 MG PO (09:06)
[2025-01-28] MEDS: INVANZ 60 MG IV (13:06)
--- NOTE | 2025-01-28 13:35 | W.PN.ID1 ---
Date of Service
Date of Service: January 28, 2025
Today's Communication
Continue abx.
Assessment / Plan
Left wrist cat bite
Left wrist tenosynovitis
Left hand cellulitis
Elevated CRP
Penicillin allergy
Recommendations:
Continue ertapenem, which will cover streptococcal isolates, along with Pasteurella.
Given involvement of tendons, patient may benefit from a 2 to 3-week course of IV antibiotics.
Home infusion sheet placed on paper chart; home infusion being set up.
Midline placed.
����������������������������������������������������������
Chief Complaint
-: Cellulitis
Subjective / Review of Systems
Pt seen / examined. Notes improvement in finger ROM.
Review of Systems: No Fever and No Chills
Vital Signs / Physical Exam
Vital Signs
Vital Signs
Temp Pulse Resp BP Pulse Ox
98 F 72 16 138/77 98
01/28/25 07:41 01/28/25 07:41 01/28/25 07:41 01/28/25 07:41 01/28/25 07:41
Physical Exam
Constitutional: No Acute Distress, Comfortable and Non-toxic
Pulmonary: Non Labored
Gastrointestinal: Non Distended
Extremities: Other (Left upper extremity remains dressed in Apolinar wrap. Decreased active ROM of 3rd and 4th fingers; improvement from presentation.)
Neurological: Awake and Alert
Psychological: Calm
Objective Data
Lab Data
Lab Results
01/25/25 06:27
01/25/25 06:27
Estimated Creat Clear 102 ml/min 01/25/25 06:27
Lactic Acid 0.9 mmol/L (0.7-2.0) 01/22/25 16:01
Total Bilirubin 0.7 mg/dl (0.2-1.3) 01/22/25 16:01
AST 17 U/L (14-36) 01/22/25 16:01
ALT 15 U/L (0-35) 01/22/25 16:01
Alkaline Phosphatase 55 U/L (38-126) 01/22/25 16:01
C-Reactive Protein 22.50 mg/L (0.0-10.00) H 01/25/25 06:27
Most recent labs reviewed.
Micro Results:
01/22/25 16:34 Blood Culture - Final
Blood/Venous No Growth - Final Report
01/22/25 16:34 Blood Culture - Final
Blood/Venous No Growth - Final Report
01/24/25 15:56 Anaerobic Culture - Preliminary
Hand - Left NO ANAEROBES ISOLATED
01/24/25 15:56 Wound Culture - Preliminary
Hand - Left No growth
Gram Stain - Preliminary
Imaging:
01/23/2025 X-ray left wrist: moderate diffuse soft tissue swelling and subcutaneous edema throughout the left wrist and hand consistent with acute cellulitis. No radiographic evidence for acute osteomyelitis or soft tissue emphysema. Please see
full dictation for additional detail.
--- NOTE | 2025-01-28 14:24 | W.DCSUMMARY ---
Discharge Summary
Discharge Data
Date of Admission: 01/22/25
Date of Discharge: 01/28/25
Total time spent discharging patient (in min): 35
-
Pending Results: No
Hospital Course
Attending physician on day of discharge:
Taisha Velasquez MD
Discharge diagnosis:
Cellulitis of the left wrist and forearm secondary to cat bite
Extensor tendons and tenosynovitis
Secondary diagnoses:
Hypothyroidism
Consultations:
Infectious diseases
Orthopedic surgery
Procedures:
Left wrist I&D, extensor tenosynovectomy
Hospital course:
54F p/w left arm swelling after cat bite, found to have cellulitis and extensor tendon tenosynovitis, underwent above procedure, placed on nonweightbearing status by Ortho with splint. ID placed patient on IV ertapenem, via midline to continue at
home.
Diagnostic Findings:
Wrist x-ray:1. Moderate diffuse soft tissue swelling and subcutaneous edema throughout the left wrist and hand consistent with ACUTE CELLULITIS.
2. No radiographic evidence for acute osteomyelitis or soft tissue emphysema.
01/24/25 15:56 Wound Culture - Final
Hand - Left Gram Stain - Final
No growth
01/24/25 15:56 Anaerobic Culture - Final
Hand - Left NO ANAEROBES ISOLATED
01/22/25 16:34 Blood Culture - Final
Blood/Venous No Growth - Final Report
01/22/25 16:34 Blood Culture - Final
Blood/Venous No Growth - Final Report
Physical exam on discharge:
Gen: NAD
HEENT: PERRLA, EOMI, MMM, neck supple
Cards: RRR, no M/G/R
Resp: Lungs CTAB, no W/R/R
GI: soft, NT/ND/NABS
MSK: No edema
Skin: Left arm in dressing. Right arm midline
Heme: No LAD
Psych: Calm
Neuro: AAOx3
Discharge disposition:
Home with home health for infusion
Discharge Plan
-
Patient Disposition: Home with Home Care
Discharge Diagnosis/Procedures: Cellulitis of the left wrist and forearm secondary to cat bite
Extensor tendon tenosynovitis
Diet: Regular
Activity: As tolerated and Other activity
Additional Activity: Non weight bearing of Left arm
Referrals:
Michael Friend DO [Family Provider, [facility]]
Ventura Vieyra DO [Active, Infectious Diseases]
Dale Turcios MD [Active, Orthopedics] - in one to two weeks
Referral Note: 10 days
Prescriptions:
New
Ertapenem [Invanz] 1000 MG
0.9% Sodium Chloride [Nss] 50 ML
120 mls/hr IV Q24H
Ordered By: Taisha Velasquez MD
Last Taken: 01/28/25 13:06 60 mls
Continued
multivitamin Tablet
1 tab PO DAILY
levothyroxine 125 mcg tablet
62.5 mcg PO DAILY@0600
Discharge Orders:
Discharge Patient (As Directed); Ordered 01/28/25
Ordered By: Taisha Velasquez
Discharge Date and Time
Discharge Date/Time: 01/28/25 14:39
Print Language: KYRGYZ
--- NOTE | 2025-01-28 14:48 | CM ---
Plan: Discharge to home today with [facility]
== END 2025-01-28 14:39 | disposition home health service (06) | DRG 501 ==
LOC: 4 WEST ACU 17:57
PROVIDERS: Hospitalist; Student in an Organized Health Care Education/Training Program; ADMITTING PHYSICIAN Hospitalist; ATTENDING PHYSICIAN Internal Medicine; CONSULT PHYSICIAN Internal Medicine Infectious Disease; CONSULT PHYSICIAN Orthopaedic Surgery; EMERGENCY PHYSICIAN Emergency Medicine; FAMILY PHYSICIAN Family Medicine
PROC: 3E0234Z Introduction of Serum, Toxoid and Vaccine into Muscle, Percutaneous Approach (ICD-10-PCS; 2025-01-22)
PROC: 0LB60ZZ Excision of Left Lower Arm and Wrist Tendon, Open Approach (ICD-10-PCS; 2025-01-24)
DX: M65.132 Other infective (teno)synovitis, left wrist (principal); L03.114 Cellulitis of left upper limb; S61.552A Open bite of left wrist, initial encounter; W55.01XA Bitten by cat, initial encounter; E03.9 Hypothyroidism, unspecified; Z23 Encounter for immunization
CPT/HCPCS: 73110; 80048; 80053; 83605; 85025; 85027; 86140; 87040; 87070; 87075; 87205; 96365; 96375; 99285; J1335